=== PATIENT | female | born 1975 | race Caucasian/White ===

== ENCOUNTER 2022-05-11 08:33 | Outpatient (REF) | payer OTHER, SELFPAY ==
[2022-05-11 09:08] LABS: MANUAL DIFF FLAG NO
[2022-05-11 09:39] LABS: Basophils Percent Auto 0.6 % (0-2); Eosinophils Absolute Auto 0.2 X10*3/uL (0.0-0.4); Eosinophils Percent Auto 2.1 % (0-4); Hematocrit 46.2 % (37.0-47.0); Imm Gran Abs Auto 0.06 X10*3/uL (0.00-0.03); Imm Gran Pct Auto 0.8 % (0.0-0.4); Lymphocytes Absolute Auto 2.8 X10*3/uL (1.2-4.9); Lymphocytes Percent Auto 39.2 % (20-40); Mean Corpuscular HGB Conc 32.5 g/dl (31.0-35.0); Mean Corpuscular Volume 95.5 fL (80.0-98.0); Mean Platelet Volume 9.6 fL (9.4-12.3); Monocytes Absolute Auto 0.3 X10*3/uL (0.1-1.2); Neutrophils Absolute Auto 3.8 x10*3/uL (2.0-8.3); Neutrophils Percent Auto 53.3 % (45-73); Platelet Count 349 X10*3/uL (160-400); Red Blood Count 4.84 X10*6/uL (4.20-5.50); Red Cell Distribution Width 13.3 % (11.0-16.0); White Blood Count 7.2 X10*3/uL (4.8-10.8)
[2022-05-11 10:07] LABS: Alanine Aminotransferase 26 U/L (0-31); Albumin Level 3.9 g/dL (3.5-5.0); Alkaline Phosphatase 103 U/L (39-117); Anion Gap 19 (12-20); Aspartate Amino Transferase 19 U/L (5-31); Bilirubin Total 0.2 mg/dL (0.0-1.0); Blood Urea Nitrogen 17 mg/dL (9-16); Calcium 9.4 mg/dL (8.4-10.2); Carbon Dioxide 25 mmol/L (22-29); Chloride 98 mmol/L (96-108); Cholesterol 215 mg/dL; Estimated Glomerular Filt Rate > 60; Glucose Random 161 mg/dL (60-115); Potassium 4.5 mmol/L (3.3-5.1); Sodium 137 mmol/L (135-145); Total Protein 8.1 g/dL (6.5-8.0)
[2022-05-11 10:20] LABS: ~HepC Num1 12.89 S/CO (0.00-0.79); ~Hepatitis C Antibody Reactive (Nonreactive)
[2022-05-11 10:21] LABS: HBc Num1 7.54 S/CO (0.00-0.79); HBsAGNum1 0.18 S/CO (0.00-0.99); HIV AB/AG Nonreactive (Nonreactive); HIV Num 1 0.11 S/CO (0.00-0.99); Hepatitis B Surface Antigen Negative (Negative); ~Hepatitis B Surface Antibody NONREACTIVE (Nonreactive)
[2022-05-11 12:47] LABS: HBc Num2 7.54 S/CO; Hepatitis B Core Antibody Reactive (Nonreactive)
[2022-05-12 08:28] LABS: Syphilis Screen Nonreactive (Nonreactive)
[2022-05-13 05:32] LABS: Hepatitis B Core Antibody IgM REACTIVE (NON-REACTIVE)
[2022-05-14 09:36] LABS: HCV Log PCR 6.69 Log IU/mL (NOT DETECTED)
== END 2022-05-11 08:34 | disposition home or self-care (01) ==
LOC: HO.LAB 08:33
PROVIDERS: Visit Provider Family Medicine
DX: Z11.4 Encounter for screening for human immunodeficiency virus [HIV] (principal); F11.20 Opioid dependence, uncomplicated
CPT/HCPCS: 36415; 80053; 82465; 85025; 86704; 86705; 86706; 86780; 86803; 87340; 87389; 87522

== ENCOUNTER → 2022-07-31 08:46 | Outpatient (REF) | payer OTHER, SELFPAY ==
--- NOTE | 2022-07-31 08:52 | ECG_ITS ---
Test Reason : qt prolongation Blood Pressure : / mmHG Vent. Rate : 071 BPM Atrial Rate : 071 BPM P-R Int : 140 ms QRS Dur : 098 ms QT Int : 434 ms P-R-T Axes : 050 069 034 degrees QTc Int : 471 ms Normal sinus rhythm Nonspecific T wave abnormality Abnormal ECG When compared with ECG of 08-JAN-2012 08:29, Nonspecific T wave abnormality has replaced inverted T waves in Anterior leads Referred By: Lilly Joshua Electronically Signed By:ZAKIYA WOMACK MD
== END ==
LOC: HO.CARD 08:46
PROVIDERS: Visit Provider Family Medicine
DX: Z79.899 Other long term (current) drug therapy (principal)
CPT/HCPCS: 93005